=== PATIENT | male | born 1980 | race Caucasian/White ===

== ENCOUNTER 2017-12-09 19:37 | Emergency (ER) | payer OTHER ==
[~2017-12-09] VITALS: Ht 188 cm; Wt 109.1 kg
[2017-12-09 19:49] VITALS: BP 135/85; TEMP 97.9
[2017-12-09] MEDS ORDERED: AMOXICILLIN 8751 TAB PO (21:23)
[2017-12-09 21:32] VITALS: PULSE 89
== END 2017-12-09 21:36 | disposition home or self-care (01) ==
LOC: COL.ER 19:37
DX: J01.90 Acute sinusitis, unspecified (principal)

== ENCOUNTER 2021-08-18 09:15 | Outpatient (RCR) | payer OTHER ==
[~2021-08-18 09:15] MED LIST: AMOXICILLIN 8751 TAB PO
== END 2021-09-01 ==
LOC: MKS.ESL.PT
DX: M72.2 Plantar fascial fibromatosis (principal); M67.01 Short Achilles tendon (acquired), right ankle; M67.02 Short Achilles tendon (acquired), left ankle

== ENCOUNTER 2023-12-31 06:02 | Emergency (ER) | payer OTHER ==
[~2023-12-31] VITALS: Ht 188 cm; Wt 122.7 kg
[2023-12-31 06:12] VITALS: TEMP 98.2
[2023-12-31] MEDS ORDERED: fentaNYL 50 MCG/ML 2 ML VIAL IV ONE (06:45)
[2023-12-31] MEDS ORDERED: NS 500 ML IV ONE (06:45)
[2023-12-31 06:53] LABS: BASO % 0.4 % (0.0-2.0); EOS # 0.2 K/mm3 (0.0-0.7); EOS % 2.1 % (0.0-4.0); GRAN # 7.3 K/mm3 (1.4-6.5); GRAN % 73.2 % (42.2-75.2); HEMATOCRIT 43.9 % (42.0-52.0); HEMOGLOBIN 15.3 g/dl (13.5-18.0); LYMPH # 1.4 K/mm3 (1.2-3.4); LYMPH % 14.1 % (20.0-51.0); MEAN CELL VOLUME 79 fl (80.0-100.0); MEAN CORPUSCULAR HEMOGLOBIN 28 pg (27-31); MEAN CORPUSCULAR HGB CONC 35 g/dl (33.0-37.0); MEAN PLATELET VOLUME 8.8 fl (7.4-10.4); MONO % 9.8 % (1.7-9.3); PLATELET COUNT 212 K/mm3 (130-400); RED BLOOD COUNT 5.55 M/mm3 (4.20-5.60); REDCELL DISTRIBUTION WIDTH-CV 12.4 % (11.5-14.5)
[2023-12-31 07:00] LABS: INR 1.1 (0.8-3.0); PROTHROMBIN TIME 11.5 SECONDS (9.7-12.8)
[2023-12-31 07:10] LABS: BILIRUBIN,TOTAL 0.6 mg/dL (0.2-1.2); CALCIUM 9.9 mg/dL (8.4-10.2); CREATININE, serum 0.84 mg/dL (0.72-1.25); POTASSIUM 4.3 mEq/L (3.5-4.5); TOTAL PROTEIN 7.3 g/dl (6.2-8.1)
[2023-12-31] MEDS ORDERED: NS 1,000 ML IV ONE (07:15)
[2023-12-31] MEDS ORDERED: Ketorolac 30 MG/ML VIAL IV ONE (07:15)
[2023-12-31] MEDS ORDERED: Iohexol 300 - 100 ML VIAL IV ONE (07:25)
[2023-12-31] MEDS ORDERED: dexAMETHasone 10 MG/ML VIAL IV ONE (08:45)
[2023-12-31 09:32] VITALS: BP 110/62; PULSE 60
== END 2023-12-31 09:45 | disposition home or self-care (01) ==
LOC: COL.ER 06:02
PROVIDERS: Internal Medicine
DX: L03.211 Cellulitis of face (principal); J32.0 Chronic maxillary sinusitis; K04.7 Periapical abscess without sinus; I95.9 Hypotension, unspecified
CPT/HCPCS: J0295; J1100; J1885; J3010; J7030; J7040; Q9967